=== PATIENT | female | born 1990 | race Two or more races ===

== ENCOUNTER 2025-01-03 07:10 | Emergency (ER) | payer OTHER ==
[~2025-01-03] VITALS: Ht 165.1 cm; Wt 72.3 kg
[2025-01-03 07:38] VITALS: BP 136/69; PULSE 102; RESP 16; O2SAT 100
--- NOTE | 2025-01-03 07:47 | ED.PDOC ---
Musculoskeletal HPI Comments A 34 YEAR OLD FEMALE PRESENTS TO THE ED WITH CHIEF COMPLAINT OF LEFT FOOT PAIN S/P FALL. PATIENT REPORTS THAT SHE HAD ACCIDENTALLY TRIPPED OVER HER DOG YESTERDAY MORNING, CAUSING HER TO INJURE HER LEFT FOOT. PATIENT RELAYS THAT SINCE THEN, SHE HAS BEEN EXPERIENCE INCREASED PAIN AND SWELLING TO THE LEFT FOOT. PATIENT DENIES ANY NUMBNESS, WEAKNESS, HEAD INJURY, LEG INJURY, OR CHEST PAIN. NO OTHER SYMPTOMS REPORTED AT THIS TIME OF CARE. Chief Complaint: Lower Extremity Time Seen by MD: 07:44 Primary Care Provider: NONE Reviewed Notes: Nurses Notes, Medications, Allergies Allergies: Coded Allergies: NO KNOWN ALLERGIES (Unverified , 01/03/25) Home Meds Active Scripts Ibuprofen (Ibuprofen) 800 Mg Tab, 1 TAB PO TID, #30 TAB Prov:MOUNIKA MEI 01/03/25 Information Source: Patient Mode of Arrival: Ambulatory Location: Left Extremity Location: Foot Timing: Days Prehospital treatment: None Severity: Moderate Able to Move Extremity: Yes Bear Weight: No Pain: Moderate Mechanism: Spontaneous Circumstances: Fall Onset of Symptoms: After Trauma Symptoms: Swelling, Pain DVT Risk Factors: NONE Last Tetanus: UTD Associated signs and symptoms: Foot pain Past Medical History PAST MEDICAL HISTORY: Denies Surgical History: Denies all surgeries HOSPITAL PERSONNEL DIRECTOR History: No Pertinent HOSPITAL PERSONNEL DIRECTOR History Family History Family History: Reviewed,noncontributory to illness Social History Smoker: Non-Smoker Alcohol: Denies ETOH Use Drugs: Denies Drug Use Lives In: Home Constitutional: denies: chills, diaphoresis, fatigue, fever, malaise, sweats, weakness, others EENTM: denies: blurred vision, double vision, ear bleeding, ear discharge, ear drainage, ear pain, ear ringing, eye pain, eye redness, hearing loss, mouth pain, mouth swelling, nasal discharge, nose bleeding, nose congestion, nose pain, photophobia, tearing, throat pain, throat swelling, voice changes, others Respiratory: denies: cough, hemoptysis, orthopnea, SOB at rest, shortness of breath, SOB with excertion, stridor, wheezing, others Cardiovascular: denies: chest pain, dizzy spells, diaphoresis, Dyspnea on exertion, edema, irregular heart beat, left arm pain, lightheadedness, palpitations, PND, syncope, others Gastrointestinal: denies: abdomen distended, abdominal pain, blood streaked bowels, constipated, diarrhea, dysphagia, difficulty swallowing, hematemesis, melena, nausea, poor appetite, poor fluid intake, rectal bleeding, rectal pain, vomiting, others Genitourinary: denies: abnormal vagina bleeding, burning, dyspareunia, dysuria, flank pain, frequency, hematuria, incontinence, pain, , vagina discharge, urgency, others Neurological: denies: dizziness, fainting, headache, left sided numbness, left sided weakness, numbness, paresthesia, pre-existing deficit, right sided numbness, right sided weakness, seizure, speech problems, tingling, tremors, weakness, others Musculoskeletal: reports: joint pain, joint swelling, others (LEFT FOOT PAIN AND SWELLING); denies: back pain, gout, muscle pain, muscle stiffness, neck pain Integumetry: denies: bruises, change in color, change in hair/nails, dryness, laceration, lesions, lumps, rash, wounds, others Allergic/Immunocompromised: denies: Difficulty Healing, Frequent Infections, Hives, Itching, others Hematologic/Lymphatic: denies: anemia, blood clots, easy bleeding, easy bruising, swollen glands, others Endocrine: denies: excessive hunger, excessive sweating, excessive thirst, excessive urination, flushing, intolerance to cold, intolerance to heat, unexplained weight gain, unexplained weight loss, others Psychiatric: denies: anxiety, bipolar disorder, depression, hopeless, panic disorder, schizophrenia, sleepless, suicidal, others All Other Systems: Reviewed and Negative Physical Exam General Appearance: No Apparent Distress, Normal HEENT: Normal ENT Inspection, PERRL/EOMI Neck: Full Range of Motion, Non-Tender, Normal, Normal Inspection Respiratory: Chest Non-Tender, Lungs Clear, No Accessory Muscle Use, No Respiratory Distress, Normal Breath Sounds Cardiovascular: No Edema, No JVD, No Murmur, No Gallop, Normal Peripheral Pulses, Regular Rate/Rhythm Breast Exam: Deferred Gastrointestinal: No Organomegaly, Non Tender, No Pulsatile Mass, Normal Bowel Sounds, Soft Genitalia: Deferred Pelvic: Deferred Rectal: Deferred Extremities: Decreased range of motion, No calf tenderness, Normal capillary refill, No pedal edema, Swelling (BONY TENDERNESS AND SWELLING ON LEFT LATERAL DORSAL FOOT, NO DEFORMITY. ), Tender (BONY TENDERNESS AND SWELLING ON LEFT DORSAL FOOT. NEUROVASCULAT INTACT. 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 Was a procedure done?: No Differential Diagnosis EXT Differential Diagnosis: Fracture, Sprain, Dislocation, Contusion, Strain, Bursitis X-Ray, Labs, Meds, VS Vital Signs Date Time Temp Pulse Resp B/P (MAP) Pulse Ox O2 Delivery O2 Flow Rate FiO2 01/03/25 08:11 98.2 01/03/25 07:38 102 16 100 Room Air 01/03/25 07:38 98.1 102 16 136/69 (91) 100 98.1 01/03/25 07:25 98.2 116 16 131/77 (95) 100 98.2 Current Medications Medications (Trade) Dose Ordered Sig/Bulmaro Route Start Time Stop Time Status Last Admin Ibuprofen (Motrin Tablet) 800 mg ONCE ONCE PO 01/03/25 08:15 01/03/25 08:16 DC 01/03/25 08:11 X-Ray, Labs, Meds, VS Comment EXTERNAL MEDICAL RECORDS REVIEWED: [NONE] INDEPENDENT HISTORIANS: [NONE] SOCIAL DETERMINANTS OF HEALTH: [NONE] LABS ORDERED: NONE REVIEWED AND INTERPRETED RESULTS: LT FOOT XR INTERPRETED BY ME. FRACTURE NOTED TO BASE OF FIFTH METATARSAL. PENDING RADIOLOGIST REPORT. IMAGING ORDERED: LT FOOT XR TREATMENTS ORDERED: SPLINT AND WRAPPING PROVIDED. IBUPROFEN 800MG PO PROCEDURES PERFORMED: NONE CRITICAL CARE TIME: NONE I HAVE DISCUSSED THE PATIENT WITH THE ATTENDING PHYSICIAN DR. RIOS] AND HE AGREES WITH THE PATIENT'S PLAN OF CARE AND DISPOSITION. SPOKE WITH [facility] AND MANAGED TO SCHEDULE PATIENT AN APPOINTMENT WITH THEM FOR TUESDAY AT 3:15PM. BASED ON HISTORY OF PRESENT ILLNESS, AND PHYSICAL EXAM, PATIENT WILL BE DISCHARGED HOME. DISCUSSED PLAN FOR DISCHARGE HOME WITH RX IBUPROFEN 800MG. MEDICATION WARNINGS GIVEN. SHARED DECISION MAKING: DISCUSSED WITH PATIENT THAT THEIR WORKUP WAS NORMAL. PATIENT INSTRUCTED TO FOLLOW UP WITH PRIMARY CARE PROVIDER IN 1-2 DAYS FOR RE- EVALUATION OF SYMPTOMS. PATIENT VERBALIZES UNDERSTANDING TO RETURN TO ED FOR NEW OR WORSENING SYMPTOMS OR IF FOLLOW UP WITH PCP CANNOT BE OBTAINED. PATIENT FEELS COMFORTABLE GOING HOME AT THIS TIME. ALL QUESTIONS ADDRESSED AT TIME OF DISCHARGE. Time of 1ST Reevaluation: 08:30 Reevaluation 1ST: Unchanged Patient Education/Counseling: Diagnosis, Treatment Family Education/Counseling: No Family Present Departure 1 Departure Time of Disposition: 08:30 Impression: Primary Impression: Fracture of fifth metatarsal bone of left foot Qualified Codes: S92.355A - Nondisplaced fracture of fifth metatarsal bone, left foot, initial encounter for closed fracture Disposition: 01 HOME / SELF CARE / HOMELESS Condition: Stable Additional Instructions: FOLLOW-UP WITH PCP IN 1 TO 2 DAYS. TAKE MEDICATIONS PRESCRIBED. RETURN TO ED FOR ANY NEW OR WORSENING SYMPTOMS. e-Prescriptions Ibuprofen (Ibuprofen) 800 Mg Tab 1 TAB PO TID, #30 TAB Prov: MOUNIKA MEI 01/03/25 Discharged With: Self Critical Care Note Critical Care Time?: No Stability Stability form required: No Heart Score Heart Score: Heart Score Response (Comments) Value History N/A 0 EKG N/A 0 Age N/A 0 Risk Factors N/A 0 Troponin N/A 0 Total 0 I personally scribed for MOUNIKA MEI ([email or web address]) on 01/03/25 at 07:47. Electronically submitted by Jeremiah Johnson ([email or web address]). I personally scribed for MOUNIKA MEI ([email or web address]) on 01/03/25 at 08:07. Electronically submitted by Jeremiah Johnson ([email or web address]). I personally scribed for BETO JAMES MD ([email or web address]) on 01/03/25 at 08:28. Electronically submitted by Jeremiah Johnson ([email or web address]). MOUNIKA MEI Jan 03, 2025 07:47 BETO JAMES MD Jan 03, 2025 08:28
[2025-01-03 08:11] VITALS: TEMP 98.2
[2025-01-03] MEDS: IBUPROFEN 800 MG TAB PO ONE (08:11)
[2025-01-03] MEDS ORDERED: IBUP-1456 PO (08:14)
--- NOTE | 2025-01-03 08:21 | DVH ---
EXAM: XY L FOOT 3 VIEW XRAY CLINICAL INDICATION: fall TECHNIQUE: XY L FOOT 3 VIEW XRAY Comparison: None FINDINGS/IMPRESSION: Nondisplaced fracture of the base of the 5th metatarsal.
== END 2025-01-03 08:40 | disposition home or self-care (01) ==
LOC: ER 07:10
DX: S92.355A Nondisplaced fracture of fifth metatarsal bone, left foot, initial encounter for closed fracture (principal); Z79.1 Long term (current) use of non-steroidal anti-inflammatories (NSAID); W01.0XXA Fall on same level from slipping, tripping and stumbling without subsequent striking against object, initial encounter; Y93.89 Activity, other specified; Y92.89 Other specified places as the place of occurrence of the external cause; Y99.8 Other external cause status
CPT/HCPCS: 29515; 73630

== ENCOUNTER 2025-01-14 08:17 | Day surgery (SDC) | payer OTHER ==
[2025-01-11 08:58] LABS: Urine Bacteria None Seen /hpf (None Seen)
[2025-01-11 09:03] LABS: Basophils # (auto) 0 10 ^3/uL (0-0.2); Basophils % (auto) 0.5 % (0.0-2.0); Eosinophils # (auto) 0.1 10 ^3/uL (0-0.8); Eosinophils % (auto) 1.5 % (0.0-7.0); Hematocrit 41.5 % (36.0-46.0); Hemoglobin 13.9 g/dL (12.2-16.2); Lymphocytes # (auto) 1.9 10 ^3/uL (0.4-5.4); Lymphocytes % (auto) 32.2 % (10.0-50.0); Mean Corpuscular Hgb Conc. 33.5 g/dL (32.0-36.0); Mean Corpuscular Volume 80.5 fL (80.0-100.0); Monocytes # (auto) 0.5 10 ^3/uL (0-1.3); Monocytes % (auto) 8.2 % (0.0-12.0); Neutrophils # (auto) 3.3 10 ^3/uL (1.6-8.6); Neutrophils % (auto) 57.6 % (37.0-80.0); Nucleated Red Blood Cells % 0.1 %; Platelet Count (auto) 322 10^3/uL (140-450); Red Blood Cells 5.16 10^6/uL (4.0-5.20); Red Cell Distribution Width 12.6 % (11.8-14.3); White Blood Cell 5.8 10^3/uL (4.4-10.8)
[2025-01-11 09:19] LABS: INR 0.98 (0.9-1.15); Partial Thromboplastin Time 27.6 SEC (24.5-34.5); Prothrombin Time 10.4 sec (9.3-11.8)
[2025-01-11 09:22] LABS: Urine Blood TRACE /uL (Negative); Urine Clarity Clear (Clear); Urine Color Colorless (Yellow); Urine Protein, UAD Negative (Negative); Urine Specific Gravity 1.006 (1.001-1.035); Urine Squamous Epithelial Cell None Seen /hpf (<5); Urine Urobilinogen Normal (Negative)
[2025-01-11 09:26] LABS: Urine WBC 1 /HPF (0-5)
[2025-01-11 09:33] LABS: Alanine Aminotransferase 30 U/L (7-40); Alkaline Phosphatase 111 U/L (46-116); Anion Gap 7 (5-15); Aspartate Aminotransferase 20 U/L (13-40); BUN/Creatinine Ratio 15.8 (10.0-20.0); Blood Urea Nitrogen 12 mg/dL (9-23); Calcium 10.4 mg/dL (8.7-10.4); Carbon Dioxide 25 mmol/L (20-31); Chloride 104 mmol/L (98-107); Glucose 92 mg/dL (74-106); Potassium 4.7 mmol/L (3.5-5.1); Sodium 136 mmol/L (136-145)
[2025-01-11 09:34] LABS: Albumin 5.2 g/dL (3.2-4.8); Bilirubin, Total 0.8 mg/dL (0.2-1.0)
[~2025-01-14] VITALS: Ht 165.1 cm; Wt 73.5 kg
[2025-01-14] MEDS ORDERED: ceFAZolin 1GM/50ML 100 ML IV ONE (08:50)
[2025-01-14] MEDS ORDERED: HYDROmorphone HCL 2 MG/ML VL/or syr ONE (09:20)
[2025-01-14] MEDS ORDERED: MIDAZOLAM HCL 2MG/2ML 2ml VIAL (1mg/ml) ONE (09:20)
[2025-01-14] MEDS ORDERED: fentaNYL CITRATE 100 MCG/2 ML VL ONE (09:20)
[2025-01-14] MEDS ORDERED: GLYCOPYRROLATE 0.2 MG/ML 1ML VIAL ONE (09:21)
[2025-01-14] MEDS ORDERED: PROPOFOL 10 MG/ML 20 ML IV ONE (09:21)
[2025-01-14] MEDS ORDERED: KETOROLAC TROMETH 30 MG/ML 1ML VIAL ONE (09:21)
[2025-01-14] MEDS ORDERED: ONDANSETRON HCL 4 MG/2 ML VIAL ONE (09:21)
[2025-01-14] MEDS ORDERED: DexAMETHasone SOD PHOS 10MG/1ML VIAL INJ ONE (09:21)
--- NOTE | 2025-01-14 09:27 | DVHOP2 ---
Operative Report - 2 Report Details Date: 01/14/25 Preop Diagnosis: Left fifth metatarsal fracture Postop Diagnosis: Left fifth metatarsal fracture Surgeon: Yash Ray MD Rehabilitation Therapy Technician: John SAL Anesthesiologist: Carmine JOHNSON Anesthesia: General Implant: Ossio Screw Consent: The patient was informed of the risks and benefits of the procedure. These include but are not limited to complications of anesthesia, postoperative infection, incomplete relief of symptoms, recurrence of symptoms, damage to blood vessels, nerves and tendons, deep venous thrombosis, pulmonary embolism and possible need for repeat surgery in the future. Estimated Blood Loss: 2 cc Name of Procedure Performed Open reduction internal fixation of left fifth metatarsal fracture; intraop fluoro Procedure Details Procedure Details: HISTORY OF PRESENT ILLNESS: Risks/benefits/options and alternatives were discussed in length. Risks associated with anesthesia, infection, damage to nerves and blood vessels, and bleeding or blood clots. Problems after foot fracture surgery include toe joint stiffness, weakness, need for further surgery and arthritis. Patent and family understands this and wishes to proceed with surgery. PROCEDURE: After all potential complications and risks as well as risks and benefits of the above-mentioned procedure was discussed at length with the patient and family, informed consent was obtained. The lower extremity was then confirmed with the operating surgeon, the patient, the nursing staff and Department of Anesthesia. The patient was then transferred to preoperative area in the Operative Suite and placed on the operating room table in supine position. At this time, the Department of Anesthesia anesthesia was performed. All bony prominences were well padded at this time. A nonsterile tourniquet was placed on the upper thigh of the patient. Left lower extremity was sterilely prepped and draped in the usual sterile fashion. Thelower extremity was then elevated and exsanguinated using Esmarch and tourniquet was then placed to 250 mmHg. Next, after all bony and soft tissue landmarks were identified, a 1 cm incision was made at base of fifth metatarsal. Using fluoroscopy, k-wire place in metatarsal. Fracture held reduced. We drilled over the k-wire and placed a screw holding correct reduction and orientation. Fluoro confirmed reduction. At this time, each wound was copiously irrigated and suctioned dry. The wounds were then closed using #2-0 Vicryl suture in subcutaneous fashion followed by christophe on the skin. A sterile dressing was applied consistent with Raul, [id number], and Webril followed by a splint. The patient was transferred back to the [facility] and to the Postanesthetic Care Unit. The patient tolerated the procedure well. There were no complications. Condition Good Disposition Home YASH RAY MD Jan 14, 2025 09:27
[2025-01-14 10:15] VITALS: PULSE 117; RESP 13; O2SAT 97
[2025-01-14] MEDS ORDERED: HYDROmorphone HCL 2 MG/ML VL/or syr IV PRN (10:30)
[2025-01-14] MEDS ORDERED: ONDANSETRON HCL 4 MG/2 ML VIAL IV ONE (10:30)
[2025-01-14] MEDS: LIDOCAINE 2% (LOCAL ANESTH.) PF 5ml SDV ONE (11:27)
[2025-01-14 11:30] VITALS: BP 142/85; PULSE 92; RESP 18; O2SAT 93
--- NOTE | 2025-01-14 11:43 | DVH ---
FLUOROSCOPY TIME: 31 seconds TECHNIQUE: Intraoperative radiographs of the left foot were obtained. COMPARISON: None FINDINGS: Refer to intraoperative report for further evaluation. IMPRESSION: Refer to intraoperative report for further evaluation.
== END 2025-01-14 11:30 | disposition home or self-care (01) ==
LOC: SUR 08:17
PROVIDERS: ATTEND Orthopaedic Surgery Adult Reconstructive Orthopaedic Surgery
DX: S92.352A Displaced fracture of fifth metatarsal bone, left foot, initial encounter for closed fracture (principal); Y99.8 Other external cause status; Z98.890 Other specified postprocedural states; X58.XXXA Exposure to other specified factors, initial encounter; Y93.89 Activity, other specified; Y92.89 Other specified places as the place of occurrence of the external cause
CPT/HCPCS: 28485; 36415; 73620; 80053; 81001; 84702; 85025; 85610; 85730; C1713; J0690; J1100; J1171; J1885; J2003; J2250; J2405; J2704; J3010; 76000